=== PATIENT | male | born 1990 | race Caucasian/White ===

== ENCOUNTER 2024-10-05 14:56 | Emergency (ER) | payer OTHER, SELFPAY ==
[2024-10-05 15:10] VITALS: BP 140/78; PULSE 65; RESP 16; TEMP 35.9; O2SAT 100
--- NOTE | 2024-10-05 15:56 | ED.SKABFB ---
HPI - Skin/Abscess/Foreign Bdy General Chief complaint: Skin/Abscess/Foreign Body Stated complaint: Bee Sting Time Seen by Provider: 10/05/24 15:56 Source: patient Mode of arrival: ambulatory Limitations: no limitations History of Present Illness HPI narrative: 34-year-old male presented for complaint of right foot swelling following an insect sting yesterday. He states he believes he stepped on a yellow jacket and was stung once between the 2nd and 3rd toes. Patient took Benadryl this morning. Endorses a swelling is concerning only because he wants to wear his work boots tomorrow. Denies numbness, tingling or weakness. Denies lip, tongue, or throat swelling, shortness of breath or wheezing. Related Data Home Medications ?Medication ?Instructions ?Recorded ?Confirmed ?Last Taken ?Type loratadine-pseudoephedrine ER 10 1 tablet PO DAILY 07/07/19 Unknown History mg-240 mg tablet,extended [id number] (Claritin-D 24 Hour) Allergies Allergy/AdvReac Type Severity Reaction Status Date / Time No Known Allergies Allergy Verified 10/05/24 15:02 Review of Systems Review of Systems: CONSTITUTIONAL: Denies body aches, fever, chills, or sweats. EYES: Denies visual changes, redness, or discharge. ENT: Denies rhinorrhea, congestion CARDIOVASCULAR: Denies chest pain, palpitations, or edema. RESPIRATORY: Denies cough or dyspnea. GASTROINTESTINAL: Denies abdominal pain, nausea, vomiting, or diarrhea. SKIN: Reports right foot swelling MUSCULOSKELETAL: Denies back pain, joint pain, or myalgia. NEUROLOGIC: Denies headache, numbness, tingling, or weakness. [facility] Past Medical History Medical History (Updated 10/05/24 @ 16:02 by Jody Gonsales APRN) MALDONADO (dyspnea on exertion) Body mass index (bmi) 30.0-30.9, adult (01/21/19) Chest pain in adult Dyslipidemia Family history of early CAD Family History Family History (Updated 01/21/19 @ 14:56 by DOCTOR UNKNOWN) Grandparent Hypertension Family history of malignant neoplasm Family history of kidney disease Malignant neoplasm of prostate Social History Social History Smoking status: Never smoker Alcohol intake: current Comments At time of signature, I have reviewed and agree with nursing past medical, surgical, social and family history unless otherwise noted. Please see nursing chart for further information. There is no relevant family history pertinent to the presenting complaint Exam Narrative: GENERAL: Well-appearing HEAD: Normocephalic, atraumatic. EYES: conjunctivae clear, and EOMI. ENT: Mucous membranes moist. Oropharynx without edema, erythema or lesions. NECK: Supple. No lymphadenopathy CHEST: Clear to auscultation. HEART: Regular rate and rhythm. SKIN: Warm, dry. right foot with large amount of swelling noted, mild erythema. No apparent puncture site. CMS intact. NEURO: Alert and oriented x3. Course Course Emergency Course: Patient is aware of diagnosis, understands and agrees to treatment plan. Anticipatory guidance given. Patient agrees to follow-up as directed and is aware of reasons to seek care at the emergency department. Portions of this record may have been created with voice recognition software Level of Care: Express Care Visit Vital Signs Vital signs: Vital Signs Temperature 96.7 F L 10/05/24 15:10 Pulse Rate 65 10/05/24 15:10 Respiratory Rate 16 10/05/24 15:10 Blood Pressure 140/78 10/05/24 15:10 Pulse Oximetry 100 10/05/24 15:10 Temperature 96.7 F L 10/05/24 15:10 Pulse Rate 65 10/05/24 15:10 Respiratory Rate 16 10/05/24 15:10 Blood Pressure 140/78 10/05/24 15:10 Pulse Oximetry 100 10/05/24 15:10 Reviewed MDM - Skin/Abscess/Foreign Bdy MDM Narrative Medical decision making narrative: Discussed physical exam findings and RX. Advised supportive measures and signs/symptoms to go to the ER. Pt is appropriate for outpt treatment and f/u. Differential Diagnosis Differential diagnosis: Likely abscess of skin or subcutaneous tissue, viral exanthem, dermatophytosis, urticaria, herpes zoster, cellulitis, eczema, insect bites, impetigo and contact dermatitis Discharge Plan Discharge Clinical Impression: Insect sting Patient Disposition: Home Condition: Stable Instructions: Antibiotic Form, Insect Bite or Sting (ED) Additional Instructions: Take steroids and Pepcid as directed. Benadryl every 8 hours as needed (or Zyrtec according to package directions) Cool compresses to the sites of itching, avoid hot water. Avoid scratching to reduce the risk of infection Keep the foot elevated to reduce swelling Follow up with your primary care provider as needed in 1 week Go to the ER for worsening symptoms or concerns (lip, tongue, throat swelling/itching, trouble breathing etc) Patient Language: French Prescriptions: New prednisone 20 mg tablet 20 mg PO DAILY Qty: 12 0RF Rx Instructions: take 3 tablets daily for 2 days, then 2 tablets daily for 2 days then 1 tablet daily for 2 days famotidine [Pepcid] 40 mg tablet 40 mg PO DAILY Qty: 10 0RF No Action loratadine-pseudoephedrine [Claritin-D 24 Hour] 10-240 mg tablet extended release 24 hr 1 tablet PO DAILY Follow-up/Referrals: PHYSICIAN,ORTHOPEDIC SPECIALIST [Primary Care Provider] - Time of Disposition: 16:03
== END 2024-10-05 16:06 | disposition home or self-care (01) ==
PROVIDERS: Emergency Provider Nurse Practitioner Family
DX: T63.461A Toxic effect of venom of wasps, accidental (unintentional), initial encounter (principal); E78.5 Hyperlipidemia, unspecified
CPT/HCPCS: 99203; G0463